=== PATIENT | female | born 1965 | race Caucasian/White ===

== ENCOUNTER 2023-06-14 09:15 | Emergency (ER) | payer OTHER, BC, SELFPAY ==
--- NOTE | ~2023-06-14 | XR_ITS ---
EXAMINATION: XR HUMERUS, RIGHT CLINICAL INFORMATION: Pain COMPARISON: Same-day right shoulder TECHNIQUE: AP and lateral views of the right humerus. FINDINGS: The bones are intact. No acute fracture. Small calcific densities are seen adjacent to the humeral head. Small calcific or ossific density overlies the inferior portion of the glenoid and could represent a labral tear. Imaged portions of the elbow are unremarkable. XR/XR humerus RT IMPRESSION: 1. Calcific densities adjacent to the humeral head may represent calcific tendinitis. 2. Small calcific or ossific density overlies the inferior portion of the glenoid and could represent a labral tear.
--- NOTE | ~2023-06-14 | XR_ITS ---
EXAMINATION: XR SHOULDER, RIGHT CLINICAL INFORMATION: Pain COMPARISON: Same-day right humerus TECHNIQUE: AP external rotation, Grashey, scapular Y, and axillary views of the right shoulder. FINDINGS: The bones and soft tissues are normal. No fracture. Glenohumeral and acromioclavicular alignment is anatomic with glenohumeral normal joint space. Minimal degenerative change acromioclavicular joint. There are small calcific densities adjacent to the humeral head consistent with calcific tendinitis. XR/XR shoulder RT min 2V IMPRESSION: 1. Calcific tendinitis. 2. Minimal degenerative change of the acromioclavicular joint.
[2023-06-14 09:22] VITALS: BP 146/76; PULSE 86; RESP 20; TEMP 35.6; O2SAT 96; BMI 35.0
--- NOTE | 2023-06-14 12:21 | ED_ITS ---
HPI - Extremity Problem General Chief complaint: Extremity Injury, Upper Stated complaint: Upper R Arm Work Injury 06/12/23 Time Seen by Provider: 06/14/23 11:45 Source: patient Mode of arrival: ambulatory Limitations: no limitations History of Present Illness HPI Narrative: This is a 58-year-old female presenting with complaints of right shoulder/upper arm pain status post trying to pull something off a lower shelf on Tuesday while at work she reports when she bent down to grab something she feels as though she may have twisted her right upper extremity in a weird way since then has been having pain, swelling, discomfort with range of motion. She reports it hurts a lot to try to move her shoulder, and she feels like she is unable to lift it at all. No previous injuries to this shoulder. No blunt trauma. Denies numbness and tingling. No fevers or chills. No other injuries. Denies chest pain and shortness of breath Related Data Previous Rx's ?Medication ?Instructions ?Recorded acetaminophen 325 mg capsule 650 mg (2 x 325 mg) PO Q4H PRN 06/14/23 (Tylenol) pain #30 caps ketorolac 10 mg tablet 10 mg PO TID PRN pain 5 days #15 06/14/23 tabs Allergies Allergy/AdvReac Type Severity Reaction Status Date / Time No Known Allergies Allergy Verified 06/14/23 09:23 Review of Systems Review of Systems: Yes all other systems are reviewed and are negative [facility] Past Medical History Attestation statement: The following information was validated with the patient. Source: old records reviewed and nursing notes reviewed Social History Social History Smoked in Last 30 Days: No Use of substances other than those prescribed or required for medical reasons: No Advance Directives: No Do you have a plan to hurt others: No Plan Physical Exam Vital Signs: Vital Signs: Last Vital Signs Temp 96.1 F L 06/14/23 09:22 Pulse 86 06/14/23 09:22 Resp 20 06/14/23 09:22 BP 146/76 H 06/14/23 09:22 Pulse Ox 96 06/14/23 09:22 O2 Del Method Room Air 06/14/23 09:22 BMI result Body Mass Index 35.0 vss Appearance: Alert.? Oriented X3.? No acute distress.? Head: Normocephalic, atraumatic, no step-offs or deformities Eyes: Pupils equal, round and reactive to light.? Neck: Normal inspection.? Neck supple.? CVS: Normal heart rate and rhythm.? Pulses normal.? Respiratory: No respiratory distress.? Breath sounds normal.? Abdomen: Soft and nontender.? Skin: Skin warm and dry.? Normal skin color.? Normal skin turgor.? Extremities: No lower extremity edema.? No calf ttp. 5/5 strength to bilateral upper and lower extremities + patient unable to perform ROM to R shoulder due to pain unable to access strength to R shoulder. 2+ radial pulses b/l. No wrist drop. Normal distal sensation to b/l UE. Cap refil < 2 seconds to b/l UE digits. Normal handgrip b/l. RUE adducted to body. Normal rom to elbow and wrist b/l. Back: No midline tenderness, no C-spine tenderness, full range of motion, no CVA tenderness bilaterally Neuro: Oriented X 3.? No motor deficit.? No sensory deficit. CN 2-12 intact Course Reevaluation(s) Reevaluation #1: X-ray of shoulder calcific tendonitis, minimal degenerative changes of the AC joint. X-ray of humerus calcific densities adjacent to the humeral head representing calcific tendinitis small calcific or ossific density overlying the inferior portion of the glenoid and could represent labral tear, this is consistent with patient's exam limited range of motion and feeling like she can not lift with her right upper extremity. Will place patient in a sling educate her on frequent range of motion to prevent frozen shoulder. Adriel [facility] ortho Time: 12:18 Reevaluation #2: Ortho agrees with my plan. Patient to be discharged with sling. Will give Toradol and Tylenol patient has no history of kidney disease Toradol appropriate. Educated patient on diagnosis and treatment plan, answered all question, patient verbalizes understanding. At this time patient will be discharged home, advised to return with new or worsening symptoms. Educated on worrisome signs and symptoms and when to return. At this time I feel comfortable discharge home. Time: 12:27 Medications Administered Discontinued Medications Generic Name Dose Route Start Last Admin Trade Name Freq PRN Reason Stop Dose Admin Ketorolac Tromethamine 30 mg 04/30/24 12:15 06/14/23 12:34 Ketorolac Tromethamine 30 Mg/Ml Vial IM 06/14/23 12:16 30 mg ONCE ONE Administration Medical Decision Making Medical Decision Making [facility] Narrative: 1225 58 yo f presents w/ r shoulder pain sp lifting somethign off a shelf at work PE No lower extremity edema.? No calf ttp. 5/5 strength to bilateral upper and lower extremities + patient unable to perform ROM to R shoulder due to pain unable to access strength to R shoulder. 2+ radial pulses b/l. No wrist drop. Normal distal sensation to b/l UE. Cap refil < 2 seconds to b/l UE digits. Normal handgrip b/l. RUE adducted to body. Normal rom to elbow and wrist b/l. History and physical exam concerning for sprain versus strain versus ligament or tendon injury. Unlikely fracture, dislocation, no signs of neurovascular compromise or acute threat to limb. Unlikely arterial or venous occlusion Plan imaging Differential Diagnosis Differential Diagnoses: The differential diagnosis associated with the presentation includes History and physical exam concerning for sprain versus strain versus ligament or tendon injury. Unlikely fracture, dislocation, no signs of neurovascular compromise or acute threat to limb. Unlikely arterial or venous occlusion Admission/Observation Consideration of admission/observation: Escalation of care including admission/observation considered Unlikely Consult Healthcare Provider Management of the patient was discussed with: [employer] Consultant (Orthopedics) Independent Interpretation I performed an independent interpretation of an: Plain X-Ray (XR/XR shoulder RT min 2V IMPRESSION: 1. Calcific tendinitis. 2. Minimal degenerative change of the acromioclavicular joint. XR/XR humerus RT IMPRESSION: 1. Calcific densities adjacent to the humeral head may represent calcific tendinitis. 2. Small calcific or ossific density overlies the infer) Radiology Impression Discussion of test interpretation with radiology: I have reviewed the radiologist's reading. Prescription Management I considered prescription management with: Pain Medication Chronic Conditions Patient?s care impacted by: Other (obesity ) Discharge Plan Discharge Clinical Impression: Acute pain of right shoulder, Calcific tendonitis of right shoulder region Patient Disposition: Home, Self-Care Instructions: Calcific Tendinitis (ED), Shoulder Pain (ED), Arm Pain (ED) Additional Instructions: Take your medications as prescribed. If you were prescribed antibiotics today, it is important that you take your medication to their entirety, do not skip any doses, do not finish them early. Follow-up with your primary care provider this week. Return to the emergency department with new or worsening symptoms. Such as fevers, chills, chest pain, shortness of breath, nausea, vomiting, dizziness, headache, vision changes, lethargy In case of emergency call 911 XR/XR humerus RT IMPRESSION: 1. Calcific densities adjacent to the humeral head may represent calcific tendinitis. 2. Small calcific or ossific density overlies the inferior portion of the glenoid and could represent a labral tear. XR/XR shoulder RT min 2V IMPRESSION: 1. Calcific tendinitis. 2. Minimal degenerative change of the acromioclavicular joint. Please wear sling as instructed, you should take your shoulder out of the sling and try to move it to help prevent frozen shoulder multiple times a day. Please follow-up with the orthopedic team as soon as possible. Toradol has been sent to your pharmacy, you tolerated this well in the department. Please take this as prescribed do not take this with ibuprofen, or other NSAIDs, do not mix this with alcohol. Side effects of this medication including increased risk for bleeding and possible kidney injury. Prescriptions: New ketorolac 10 mg tablet 10 mg PO TID PRN (Reason: pain) 5 Days Qty: 15 0RF acetaminophen [Tylenol] 325 mg capsule 650 mg PO Q4H PRN (Reason: pain) Qty: 30 0RF Referrals: [facility] [place] [facility] [Provider Group] - 1 day Physician,Unknown J [Primary Care Provider] - 2 days Stand Alone Forms: Work/School Release Print Language: Setswana
[2023-06-14] MEDS: Ketorolac Tromethamine 30 MG/ML VIAL IM (12:34)
--- NOTE | 2023-06-14 13:10 | MHC.EDTECH ---
pt was given sling to right shoulder with verbal orders from Ines FERREIRA. pt tolerated sling well.
[2023-06-14 13:20] VITALS: BP 149/68; PULSE 68; RESP 20; TEMP 35.6; O2SAT 97
[2023-06-14 13:21] VITALS: BP 149/68; PULSE 68; RESP 20; TEMP 35.6; O2SAT 97
== END 2023-06-14 13:23 | disposition home or self-care (01) ==
PROVIDERS: Emergency Provider Emergency Medicine
DX: M75.31 Calcific tendinitis of right shoulder (principal)
CPT/HCPCS: 73030; 73060; 96372; 99284; J1885

== ENCOUNTER 2023-06-30 12:25 | Outpatient (AMB) | payer OTHER, BC, SELFPAY ==
[2023-06-30 12:38] VITALS: BMI 34.8
--- NOTE | 2023-06-30 12:38 | A.OFFVIS_ITS ---
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 She states that she was lifting a heavy part of a mixer when she had acute onset of pain. Since that time she has had difficulty lifting her right hand above shoulder height. She has been doing physical therapy exercises which gave her mild relief. She has also taken Tylenol and anti-inflammatory medicines which gave her minimal relief. Allergies No Known Allergies Allergy (Verified 06/30/23 12:51) Medication List - Last Reconciled 06/30/23 by Fred Lan MD acetaminophen (Tylenol) 650 mg (2 x 325 mg) PO Q4H PRN hydrochlorothiazide 25 mg PO DAILY ketorolac 10 mg PO TID PRN 5 days levothyroxine 50 mcg PO DAILY lisinopril 10 mg PO DAILY PFSH Surgical History Hx of umbilical hernia repair Hx of hysterectomy Hx of cholecystectomy Social History Patient Tobacco Use Status: Never used Tobacco Current occupational status: employed Current occupation: cook, Right hand dominant Physical Exam Vital Signs: BMI result Body Mass Index 34.8 Const Other: Well-nourished well-developed very friendly female awake alert and oriented x3 in no acute distress Extrem Other: Bilateral upper extremity examination shows good capillary refill, no skin lesions noted, normal sensation light touch Right shoulder examination shows decreased active range of motion but full passive range of motion when compared to her left shoulder, 4+ out of 5 strength with supraspinatus testing, positive signs, tenderness over her acromioclavicular joint, no instability Results Reviewed Results Reviewed: X-rays of the patient's right shoulder show severe acromioclavicular joint narrowing, a type 2 acromion, no acute bony abnormalities Assessment & Plan Assessment & Plan (1) Right shoulder pain: Code(s): M25.511 - Pain in right shoulder Category: Medical Plan Ms. Sanders presents with right shoulder pain and weakness possibly due to a full-thickness rotator cuff tear. Thus, I will send the patient for an MRI of her right shoulder for further evaluation. I will see her back once the MRI is completed to discuss the findings and treatment options. She will continue with her range of motion exercises in the meantime to prevent stiffness. I spent 22 minutes in reviewing the patient's records and imaging studies, seeing the patient and documenting in the medical record. Coding Level of Care Code New Pt Level 3 (82669) Diagnoses Right shoulder pain M25.511
== END 2023-06-30 13:05 | disposition home or self-care (01) ==
PROVIDERS: Visit Provider Orthopaedic Surgery
DX: M25.511 Pain in right shoulder (principal)
CPT/HCPCS: 99203

== ENCOUNTER → 2023-06-30 12:25 | Outpatient (BNVA) | payer OTHER, BC, SELFPAY | PROVIDERS: Visit Provider Orthopaedic Surgery | DX: M25.511 Pain in right shoulder (principal) | CPT/HCPCS: 99202 ==